=== PATIENT | male | born 1955 | race Caucasian/White ===

== ENCOUNTER 2024-08-19 07:32 | Emergency (ER) | payer OTHER, SELFPAY ==
[2024-08-19 07:34] VITALS: BP 149/80
[2024-08-19 08:19] VITALS: BMI 25.0
[2024-08-19 08:31] LABS: % Basophils 0.5 % (0-2); % Immature Granulocytes 0.2 % (0-0.5); % Lymphocytes 22.9 % (20.5-51.1); % Monocytes 10.1 % (1.7-9.3); % Neutrophils 63.3 % (42.2-75.2); Absolute Eosinophils 0.2 10^3/uL (0-0.7); Absolute Lymphocytes 1.3 10^3/uL (1.2-3.4); Absolute Monocytes 0.6 10^3/uL (0.1-0.6); Absolute Neutrophils 3.6 10^3/uL (1.4-6.5); Hematocrit 38.3 % (39.0-52.0); Hemoglobin 13.1 g/dL (13.0-18.0); Mean Corp Hgb Conc. 34.2 g/dL (33.0-37.0); Mean Corpuscular Hgb 31.5 pg (27.0-31.0); Mean Corpuscular Volume 92.1 fL (80.0-94.0); Mean Platelet Volume 11.4 fL (7.4-10.4); Nucleated Red Blood Cells % 0 % (-); Platelet Count 147 10^3/uL (130-400); Red Blood Cell Count 4.16 10^6/uL (4.70-6.10); White Blood Cell Count 5.7 10^3/uL (4.8-10.8)
[2024-08-19 08:43] LABS: ALT (SGPT) 23 U/L (0-50); AST (SGOT) 23 U/L (17-59); Albumin 3.7 g/dl (3.5-5.0); Alkaline Phosphatase 90 U/L (38-126); Blood Urea Nitrogen 21 mg/dl (9-20); Calcium 9.2 mg/dl (8.4-10.2); Carbon Dioxide 33 mmol/L (22-30); Chloride 102 mmol/L (98-107); Estimated Creatinine Clearance 81 ml/min; Glucose 73 mg/dl (70-99); Potassium 4.2 mmol/L (3.5-5.1); Sodium 140 mmol/L (135-145); Total Bilirubin 0.4 mg/dl (0.2-1.3); Total Protein 6.1 g/dl (6.3-8.2); eGFR > 60.00
--- NOTE | 2024-08-19 10:43 | ED.GENMED ---
History of Present Illness
General
Chief Complaint: Fall
Source: patient and spouse
Time Seen by Provider: 08/19/24 07:40
History of Present Illness
History of Present Illness:
69-year-old male who presents after he fell off the toilet. Patient states he had not been sleep and in fact had not been sleep at all for the night. He did take an antihistamine help him sleep. He states he was in on the toilet when he either
passed out or fell asleep. The patient states that he sometimes does have a tough time going to the bathroom. Does not recall straining. Denies any associated chest pain or shortness of breath. No palpitations. No diaphoresis. No numbness or
tingling. No neck pain. No back pain. No motor weakness. Just reports injury to the face. Spouse states that she thinks he could have hit his face on the tub. Patient suspects he landed on the ground.
Past History
Past History
ED Past Medical History: CAD, GERD, HTN, Hypercholesterolemia and Other (chronic pain)
ED Past Surgical History: Cardiac (CABG x3)
Social History
Tobacco: Non-smoker
Alcohol: None
Drug: None
Living: with family
Phy Exam
Physical Exam
Physical Exam:
CONSTITUTIONAL Patient alert and oriented to person, place and time. Well-appearing. Vital signs reviewed.
HEAD atraumatic, normocephalic.
EYES eyelids normal to inspection, Extraocular muscles intact, Conjunctiva normal, Sclera normal.
ENT 1 cm laceration across the bridge of the nose no active bleeding. Dried blood noted on the nose. Does have some ecchymosis to the right maxillary region as well. Small abrasion to the right forehead. No epistaxis noted
NECK normal range of motion, Trachea midline, no jugular venous distention. No midline tenderness
RESPIRATORY CHEST No respiratory distress noted, Chest expansion equal
BACK normal inspection, no obvious deformities. No obvious tenderness
UPPER EXTREMITY range of motion normal, Motor strength normal, no cyanosis, no edema.
LOWER EXTREMITY range of motion normal, Motor strength normal, no cyanosis, no edema.
NEURO Speech normal, No focal motor deficits, [place] coma scale 15, Memory normal, Cranial Nerves intact to screening exam.
SKIN skin warm, dry, and normal in color.
Course
Orders/Labs/Results
Orders:
Orders
08/19/24 08:05
Electrocardiogram (*1) Urgent
Reason for Study: Syncope
EKG- Treatment ONCE
Urinalysis Reflex To Culture Urgent
08/19/24 08:18
CT Facial Bones W/o Iv Contras Urgent
Comment:
Reason For Exam: fall
CT Head W/o Iv Contrast Urgent
Comment:
Reason For Exam: fall
Complete Blood Count/With Diff Urgent
Comprehensive Metabolic Panel Urgent
Abnormal Lab Results
08/19/24
08:18
RBC 4.16 L 10^6/uL
(4.70-6.10)
Hct 38.3 L %
(39.0-52.0)
MCH 31.5 H pg
(27.0-31.0)
MPV 11.4 H fL
(7.4-10.4)
Monocytes % 10.1 H %
(1.7-9.3)
Carbon Dioxide 33 H mmol/L
(22-30)
BUN 21 H mg/dl
(9-20)
Total Protein 6.1 L g/dl
(6.3-8.2)
08/19/24 08:18
08/19/24 08:18
Vital Signs
Initial and Last Documented VS:
Initial Vital Signs
Temp Pulse Resp BP Pulse Ox
97.7 F 60 18 149/80 98
08/19/24 07:34 08/19/24 07:34 08/19/24 07:34 08/19/24 07:34 08/19/24 07:34
Last Documented Vital Signs
Temp Pulse Resp BP Pulse Ox
97.7 F 59 22 149/80 98
08/19/24 07:34 08/19/24 08:45 08/19/24 08:45 08/19/24 07:34 08/19/24 07:34
Procedures
Laceration Closure
Nose:
Status of Wound: clean
Size of Wound in cm: 1
Description of Wound Edges: sharp
Preparation: cleaned with saline
Revision/Debridement: routine- no revision
Wound exploration: explored to base- no FB
Type of Closure: Dermabond-skin glue
MDM/Problems Addressed
Differential Diagnosis Includes:
Subdural hematoma, sinus fracture, nose fracture, intracranial hemorrhage, skull fracture, vasovagal syncope, electrolyte disturbance, cardiac syncope
MDM/Problems Addressed:
Nasal fracture, syncope, facial laceration
*Radiology
Radiology exam reviewed: preliminary read by ED provider (No obvious intracranial hemorrhage) and radiology read reviewed
*Pulse Oximetry
Patient hypoxic: no
*Critical Care Note
Total Time (30-74mins, 75-104mins- exclusive of procedures): Not Applicable
Data Reviewed
Source: patient and spouse
Prescriptions/Medications Considered But Not Given:
Consider CT C-spine but no neck pain.
Patient Management
Escalation/DeEscalation of care consider admission/obs:
Syncope while in the toilet. Had not slept all night had taken an antihistamine. Do not suspect cardiogenic syncope. Has remained in normal sinus rhythm here in the emergency department. Blood pressure okay. Denies any associated ACS symptoms.
Nasal wound repaired. Appears well. Will refer to ENT for a follow-up
ED Attending Note
-
Portions of this chart may have been created with voice recognition software.� Occasional wrong word or��sound alike� substitutions may have occurred due to the inherent limitations of voice recognition software.
Discharge Plan
Departure
Patient Disposition: Home (Routine Discharge)
Date of Disposition: 08/19/24
Time of Disposition: 10:49
Patient with high blood pressure during this ER visit?: Yes
Discharge Problem:
Closed fracture nasal bone, Head injury, Syncope
Instructions: Syncope (fainting), Laceration Repair With Glue (DC), Head Injury in Adults (DC), BLOOD PRESSURE
Prescriptions:
No Action
atorvastatin 40 MG tablet
40 mg PO DAILY@1300
famotidine 40 MG tablet
20 mg PO HSPRN PRN (Reason: stomach issues)
aspirin 81 MG tablet,delayed release (DR/EC)
81 mg PO DAILY
methadone 5 MG tablet
20 mg PO R DAILYPRN PRN (Reason: back pain)
Patient Comments:
patient pick on 10/26/2019 #90
vitamin E (dl, acetate) 400 UNITS capsule
400 units PO DAILY
multivitamin with folic acid [Tab-A-Mirella] 1 TABLET tablet
1 tab PO DAILY
Clementina-C Packets
1 packet PO DAILY
sennosides-docusate sodium 1 TABLET tablet
1 tab PO [id number] PRN (Reason: constipation) 0RF
Referrals:
Monico Jefferson MD [Active] -
UNKNOWN - PT DOES,NOT KNOW [Family Provider] -
Activity Restrictions/Additional Instructions:
Please ice your injuries. Return immediately for chest pain, palpitations, passing out episode or any other concerns. Please see your doctor and the ENT in the next 1 week for follow-up and reevaluation.
Interventions
Interventions:
*Risk Screen - Suicide Last Done: 08/19/24 07:34
*General Assessment Last Done: 08/19/24 07:34
*Neglect/Abuse Screening Last Done: 08/19/24 07:34
ED-EENT Assessment Last Done: 08/19/24 08:20
ED-Musculoskeletal Assessment Last Done: 08/19/24 08:20
ED- Neurological Assessment Last Done: 08/19/24 08:20
ED-Skin Assessment Last Done: 08/19/24 08:20
Discharge Date and Time
Print Language: POLISH
[2024-08-19] MEDS: MOTRIN 600 MG PO (10:55)
[2024-08-19] MEDS: ADACEL 0.5 ML IM (10:55)
== END 2024-08-19 11:22 | disposition home or self-care (01) ==
LOC: EMR 07:32
PROVIDERS: EMERGENCY PHYSICIAN Emergency Medicine
DX: S02.2XXA Fracture of nasal bones, initial encounter for closed fracture (principal); S09.90XA Unspecified injury of head, initial encounter; S01.21XA Laceration without foreign body of nose, initial encounter; R55 Syncope and collapse; W18.11XA Fall from or off toilet without subsequent striking against object, initial encounter; I10 Essential (primary) hypertension; Z23 Encounter for immunization
CPT/HCPCS: 99285; 12011; 90471; 70450; 70486; 80053; 85025; 90715; 93005

== ENCOUNTER → 2024-09-22 13:36 | Outpatient (REF) | payer OTHER, SELFPAY | LOC: RCS 13:36 | PROVIDERS: ATTENDING PHYSICIAN Internal Medicine Cardiovascular Disease; FAMILY PHYSICIAN Student in an Organized Health Care Education/Training Program | DX: I25.10 Atherosclerotic heart disease of native coronary artery without angina pectoris (principal) | CPT/HCPCS: 93306 ==